=== PATIENT | female | born 1950 | race Caucasian/White ===

== ENCOUNTER 2020-01-28 12:54 | Emergency (ER) | payer MEDICARE, MEDICAID ==
[~2020-01-28] VITALS: Ht 172.7 cm; Wt 88.2 kg
[2020-01-28 13:01] VITALS: Ht 172.7 cm; Wt 88.2 kg
[2020-01-28 13:36] LABS: BASOPHILS 0.7 % (0-2); HEMATOCRIT 46.9 % (36.0-48.0); HEMOGLOBIN 15.6 g/dL (12-16); IMMATURE GRANULOCYTES 0.5 % (0-5); LYMPHOCYTES 27.2 % (15-50); MCH 30.1 pg (26.0-34.0); MCHC 33.3 g/dL (31.0-37.0); MCV 90.5 fL (80.0-100.0); MEAN PLATELET VOLUME 9.9 fL (7.4-10.4); MONOCYTES 5.7 % (2-11); NEUTROPHILS 63.9 % (40-80); PLATELET COUNT 290 10x3/uL (130-400); RBC 5.18 10x6/uL (4.00-5.40); RDW 12.9 % (11.5-14.5); WBC 8.2 10x3/uL (4.8-10.8)
[2020-01-28 13:40] LABS: ANION GAP 13.2 mmol/L (8-16); CALCIUM 9.2 mg/dL (8.5-10.1); CARBON DIOXIDE 25.5 mmol/L (21.0-32.0); CREATININE - SERUM 0.9 mg/dL (0.6-1.3); POTASSIUM - SERUM 3.7 mmol/L (3.5-5.1)
[2020-01-28 13:47] LABS: ALBUMIN 4.1 g/dL (3.4-5.0); BILIRUBIN - TOTAL 0.56 mg/dL (0.2-1.3); PROTEIN - SERUM 7.6 g/dL (6.4-8.2)
[2020-01-28 18:03] VITALS: BP 133/69
== END 2020-01-28 18:05 | disposition home or self-care (01) ==
LOC: D.ER 12:54
PROVIDERS: Family Medicine
DX: G45.9 Transient cerebral ischemic attack, unspecified (principal); R51 Headache; H53.8 Other visual disturbances; I48.91 Unspecified atrial fibrillation; K21.9 Gastro-esophageal reflux disease without esophagitis

== ENCOUNTER 2020-01-30 08:28 | Inpatient (IN) | payer MEDICARE ==
[~2020-01-30] VITALS: Ht 172.7 cm; Wt 88.2 kg
--- NOTE | ~2020-01-30 | HEMODYNAMI ---
PATIENT:KWAME SHELLEY MEDICAL RECORD: [id number] : 52 LOCATION[facility] [place] [facility] [id number] ADMISSION DATE: 01/30/20 Generatedon:02/01/202014:02 Patient name: KWAME SHELLEY Patient #: [id number] SSN: : 1950 Date of study: 02/01/2020 Page: Of Hemodynamic Procedure Report Patient Data Patient Demographics Procedure consent was obtained First Name: KWAME Gender: Female Last Name: KARSTEN : 1950 Patient #: [id number] Age: 69 year(s) Race: Unknown Additional ID: [id number] Contact details [address]: [address] [place] [address] State: [place] City: [place] Zip code: [address] Past Medical History Allergies Allergen Reaction Date Comments Reported Other allergy 02/01/2020 ACETAMINOPHEN, CODEINE, HYDROCODONE Admission Admission Data Admission Date: 01/30/2020 Admission Time: 16:35 Room #: D.2114 Height (in.): 67.72 BSA: 2.01 (m2) Height (cm.): 172 BMI: 29.75 (kg/m2) Weight (lbs.): 194.01 Weight (kg.): 88 Lab Results Lab Result Date: 02/01/2020 Lab Result Time: 0:00 Biochemistry Name Units Result Min Max BUN mg/dl 10 --(-*--)-- 7 18 Creatinine mg/dl 0.8 --(-*--)-- 0.6 1.3 eGFR ml/min 75 *-(----)-- 90 120 NONAFRICAN CBC Name Units Result Min Max Hematocrit % 41.1 -*(----)-- 42 54 Hemoglobin g/dl 13.2 -*(----)-- 13.5 17.5 Procedure Procedure Types Cath Procedure Diagnostic Procedure PPM/ICD PPM Dual Implant Sedation Charges Moderate Sedation up to 15 minutes Procedure Description Procedure Date Procedure Date: 02/01/2020 Procedure Start Time: 13:30 Procedure End Time: 13:58 Procedure Staff Name Function Kari Dubois RN Nurse Mega Hewitt MD Performing Physician Kam Garcia MD Assisting physician Faith Winchester RT Scrub Donny Song RT Monitor Emiliana Hcavez RT Retail Solar Advisor Procedure Data Cath Procedure Fluoroscopy Diagnostic fluoroscopy Total fluoroscopy Time: 0.8 time: 0.8 min min Diagnostic fluoroscopy Total fluoroscopy dose: dose: 18.56 mGy 18.56 mGy Contrast Material Contrast Material Type Amount (ml) Isovue 300 0 Estimated blood loss: 5 ml Procedure Complications No complications Procedure Medications Medication Administration Route Dosage 0.9% NaCl I.V. 100 ml/hr Oxygen etCO2 Nasal cannula 2 l/min Lidocaine 1% added to field 20 Ancef (1Gm/50ml NS) I.V.P.B 1 g Ancef Irrigation Topical 1 g (1gm/500ml NS) Versed I.V. 2 mg Fentanyl I.V. 50 mcg Versed I.V. 2 mg Fentanyl I.V. 50 mcg Versed I.V. 2 mg Hemodynamics Rest BSA: 2.01 (m2) HGB: 13.2 (g/dl) O2 Consumption: Estimated: 177.15 (ml/min) O2 Co nsumption indexed: Estimated:88.13 (ml/min/m) Heart Rate: 58 (bpm) Snapshots Pre Cath Intra NCS Post Cath Vital Signs Time Heart Resp SPO2 etCO2 NIBP (mmHg) Rhythm Pain Sedation Rate (ipm) (%) (mmHg) Status Level (bpm) 13:07:40 63 14 97 29 164/77(100) NSR 0 (11) 10(A) , No pain 13:12:07 59 11 97 36 160/70(100) SB 0 (11) 10(A) , No pain 13:16:31 64 14 96 36 145/63(79) NSR 0 (11) 10(A) , No pain 13:20:51 65 16 97 35.9 129/63(98) NSR 0 (11) 10(A) , No pain 13:25:07 71 16 97 39.7 123/60(94) NSR 0 (11) 10(A) , No pain 13:29:21 60 14 96 41.2 136/60(87) NSR 0 (11) 10(A) , No pain 13:33:39 71 10 97 35.2 125/65(85) NSR 0 (11) 10(A) , No pain 13:37:53 65 10 97 36.7 125/65(84) NSR 0 (11) 10(A) , No pain 13:42:05 63 10 96 18 131/67(86) Paced 0 (11) 9(A) , No pain 13:44:36 64 10 97 36.7 126/63(95) Paced 0 (11) 9(A) , No pain 13:48:48 67 9 98 24.7 134/68(91) Paced 0 (11) 9(A) , No pain 13:53:02 65 9 99 33.7 140/73(96) Paced 0 (11) 10(A) , No pain 13:57:20 61 11 99 28.5 142/70(98) Paced 0 (11) 10(A) , No pain Medications Time Medication Route Dose Verified Delivered Reason Notes Effecti veness by by 13:08:58 0.9% NaCl I.V. 100 Mega Kari used for ml/hr Kash Silvino procedure RN 13:09:19 Oxygen etCO2 2 Mega Kari [facility]al l[facility] 13:09:27 Lidocaine added 20ml Mega Ayoub for local 1% to vial [facility] anesthetic field MD BLANDON 13:09:50 Ancef I.V.P.B 1 g Congregational Kari used for (1Gm/50ml Frankie Dubois procedure NS) RN 13:10:00 Ancef Topical 1 g Congregational Congregational used for Irrigation Frankie Garcia MD procedure (1gm/500ml NS) 13:27:21 Versed I.V. 2 mg Mega Kari for KashKashif Dubois sedation RN 13:27:37 Fentanyl I.V. 50 Mega Kari for mcg St Kashif Dubois sedation RN 13:32:28 Versed I.V. 2 mg Mega Kari for St Kashif Dubois sedation MD AVENDANO 13:32:32 Fentanyl I.V. 50 Mega Kari for mcg KashKashif Dubois sedation RN 13:38:50 Versed I.V. 2 mg Mega Karimarylu Junior sedation MD AVENDANOsyrup mixer assistant Log Time Note 12:42:17 H&P Date Dictated: 01/30/2020 Within 30 days and on chart., H&P Addendum completed by physician on day of procedure. (MUST COMPLETE FOR ALL OUTPATIENTS). 12:42:51 Patient allergic to Other allergyACETAMINOPHEN, CODEINE, HYDROCODONE 12:46:07 Procedure Status PPM/ Gen Change/ Lead Revision/ Temp. 12:46:08 Time tracking: Regular hours (M-F 7:00 - 5:00) 12:46:13 Plan of Care:Hemodynamics will remain stable., Cardiac rhythm will remain stable., Comfort level will be maintained., Respiratory function will remain adequate., Patient/ family verbilizes understanding of procedure., Procedure tolerated without complication., Recovers from procedure without complications.. 12:46:15 Faith Winchester RT(R) sent for patient. Start room use. 13:06:20 Patient received from Re-APP II to CCL 3 Alert and oriented. Tansferred to table in Supine position. 13:06:21 Warm blankets applied, and wes hugger turned on for patient comfort. 13:06:23 Signed procedure consent form obtained from patient. 13:06:24 Correct patient and procedure confirmed by team. 13:06:25 ECG and BP/O2 sat monitors applied to patient. 13:06:25 Vital chart was started 13:06:27 Baseline sample Acquired. 13:06:30 Rhythm: sinus bradycardia 13:06:32 Full Disclosure recording started 13:06:32 Pre-procedure instructions explained to patient. 13:06:33 Pre-op teaching completed and patient verbalized understanding. 13:06:38 Family unavailable. 13:06:40 Patient NPO since Midnight. 13:06:42 Is patient on blood thinner?No 13:06:44 Patient diabetic? Yes. 13:06:46 If diabetic: On Metformin? No 13:06:49 Previous problem with sedation/anesthesia? No ? 13:08:58 0.9% NaCl 100 ml/hr I.V. was administered by Kari Dubois RN; used for procedure; Verbal order read back and verified. 13:09:19 Oxygen 2 l/min etCO2 Nasal cannula was administered by Kari Dubois RN; used for procedure; Verbal order read back and verified. 13:09:27 Lidocaine 1% 20ml vial added to field was administered by Mega Hewitt MD; for local anesthetic; Verbal order read back and verified. 13:09:50 Ancef (1Gm/50ml NS) 1 g I.V.P.B was administered by Kari Dubois RN; used for procedure; Verbal order read back and verified. 13:10:00 Ancef Irrigation (1gm/500ml NS) 1 g Topical was administered by Kam Garcia MD; used for procedure; Verbal order read back and verified. 13:10:41 Snore? Yes 13:10:42 Sleep apnea? No 13:10:43 Deviated septum? No 13:10:44 Opens mouth fully? Yes 13:10:45 Sticks out tongue? Yes 13:10:48 Airway obstruction? No ? 13:10:53 Dentures? Yes IN 13:11:00 IV patent on arrival in right hand with 0.9% NaCl at [facility]. 13:11:26 Lab Result : BUN 10 mg/dl 13:11:26 Lab Result : Creatinine 0.8 mg/dl 13:11:26 Lab Result : eGFR NONAFRICAN 75 ml/min 13:11:26 Lab Result : Hemoglobin 13.2 g/dl 13:11:26 Lab Result : Hematocrit 41.1 % 13:11:37 Lab results completed and on chart. 13:11:47 Left chest area was prepped with chlora-prep and draped in sterile fashion 13:11:48 Alarms reviewed by R. N. 13:11:48 Sharps counted by scrub and verified by R.N. 13:12:08 Medtronic senior account representative LAURYN BENTON present for procedure. 13:12:17 Pre sharps counted by scrub and verified by RN: Sutures: 7; Sponges: 5; Stick needles: 2; Skin needles: 2; Blade: 1; Cautery: 1 13:12:19 Grounding pad site Left thigh. 13:12:20 Grounding pad site free from injury. 13:12:49 Use device set FRANKIE PPM 13:13:12 2-0 Ticron Multipack ([id number]) opened to sterile field. 13:13:13 3-0 Vicryl Single Pack [id number] opened to sterile field. 13:13:13 5-0 Monocryl PS2 [id number] opened to sterile field. 13:13:14 Cautery Tip Analytical Consultant opened to sterile field. 13:13:15 Cautery Pushbutton Pencil opened to sterile field. 13:13:15 Mepilex Dressing (269453) opened to sterile field. 13:13:16 Immobilizer Sling Medium opened to sterile field. 13:13:21 Medtronic 4574-45 PPM Lead opened to sterile field. 13:13:24 Medtronic 4074-52 PPM Lead opened to sterile field. 13:13:[address] Generator [id number] opened to sterile field. 13:26:48 --------ALL STOP TIME OUT------ 13:26:49 Final Timeout: patient, procedure, and site verified with staff and physician. All members of the team are in agreement. 13:26:54 Left chest site verified by team. 13:26:57 Fire Safety Assessment: A--An alcohol-based skin anteseptic being used preoperatively., B--The operative or invasive procedure is being performed above the xiphoid process or in the oropharynx., C--Open oxygen or nitrous oxide is being used. 13:27:00 Physical assessment completed. ASA score P 2 - A patient with mild systemic disease as per Mega Hewitt MD. 13:27:05 Sedation plan: IV Moderate Sedation Medication:Versed, Fentanyl 13:27:21 Versed 2 mg I.V. was administered by Kari Dubois RN; for sedation; Verbal order read back and verified. 13:27:37 Fentanyl 50 mcg I.V. was administered by Kari Dubois RN; for sedation; Verbal order read back and verified. 13:29:44 Procedure started. 13:30:09 Lidocaine 1% was administered to left subclavicular area by Kam Garcia MD . 13:32:08 Patient Weight : 194.01 lbs 13:32:21 Patient Height : 67.72 inches 13:32:28 Versed 2 mg I.V. was administered by Kari Dubois RN; for sedation; Verbal order read back and verified. 13:32:31 Incision made to left subclavicular area. 13:32:32 Fentanyl 50 mcg I.V. was administered by Kari Dubois RN; for sedation; Verbal order read back and verified. 13:35:22 Generator pocket made/opened. 13:36:24 Left subclavian vein accessed with 7Fr Peel Away Sheath. 13:36:27 Left subclavian vein accessed with 7Fr Peel Away Sheath. 13:37:21 Ventricular lead inserted and advanced. 13:37:24 Atrial lead inserted and advanced. 13:38:50 Versed 2 mg I.V. was administered by Kari Dubois RN; for sedation; Verbal order read back and verified. 13:38:52 Ventricular lead positioned. 13:38:54 Ventricular lead tested. 13:39:27 Atrial lead positioned. 13:39:29 Atrial lead tested. 13:39:50 Peel-a-way sheath was split and removed. 13:39:51 Peel-a-way sheath was split and removed. 13:40:42 PPM Dual was inserted subcutaneously to left chest. 13:40:51 PPM Dual was attached to lead(s) and inserted into pocket. 13:41:00 Device pocket was irrigated with Ancef. 13:42:41 Generator was sutured in place with 2-0 ticron. 13:42:50 Atrial lead attachment was completed with 2-0 ticron. 13:42:55 Ventricular lead attachment was completed with 2-0 ticron. 13:43:49 Subcutaneous closure was completed with 3-0 vicryl. 13:43:57 Skin closure was completed with 5-0 monocryl. 13:46:27 Lt Chest incision was dressed with Mepilex dressing. 13:52:26 Parameters-- Generator: Mode: AAIR<=>DDDR. Lower Rate: 60bpm. Upper Rate: 130bpm. 13:53:27 Parameters--Atrial P/R Wave: 2.1mV. Current: ?mA; Threshold: 0.6V; Impedence: 532OHMS. 13:53:41 Parameters--Ventricular P/R Wave: 0.4mV. Current: ?mA; Threshold: 0.3V; Impedence: 1502OHMS. 13:53:50 Procedure ended.(Physican Out) 13:54:25 Fluoroscopy time 00.80 minutes. 13:54:34 Fluoroscopy dose: 18.56 mGy 13:54:34 Flurop Dose total: 18.56 13:54:46 Dose Area Product 214.45 mGy/cm. 13:54:49 Contrast amount:Isovue 300 0ml. 13:54:52 Maximum allowable dose exceeded? No. 13:54:53 Sharps counted by scrub and verified by R.N. 13:55:12 Insertion/operative site no bleeding no hematoma. 13:55:43 Post sharps counted by scrub and verified by RN: Sutures: 7; Sponges: 5; Stick needles: 2; Skin needles: 2; Blade: 1; Cautery: 1 13:55:58 Post left subclavian vein:stable, soft, clean and dry 13:56:09 Post procedure rhythm: sinus rhythm , paced 13:56:16 Estimated blood loss: 5 ml 13:56:16 Post procedure instruction explained to patient.Patient verbalizes understanding. 13:56:17 Patient needs reinforcement of post procedure teaching. 13:57:27 Post-procedure physical assessment completed. ASA score P 2 - A patient with mild systemic disease as per Mega Hewitt MD. 13:57:31 Procedure type changed to Cath procedure, Diagnostic procedure, PPM/ICD, PPM Dual Implant, Sedation Charges, Moderate Sedation up to 15 minutes 13:57:42 Procedure and supply charges have been captured, reviewed, submitted and are correct. 13:57:44 Procedure Complication : No complications 13:57:46 Vital chart was stopped 13:57:51 Operative report dictated upon procedure completion. 13:57:59 Full Disclosure recording stopped 13:59:41 See physician's report for complete and final results. 13:59:43 Report given to PCU. 13:59:45 Patient transfered to PCU with Stretcher. 14:00:05 End room use (Document Last) 14:00:56 End room use (Document Last) 14:01:26 Emiliana Chavez RT(R) was relieved by Kari Dubois RN as monitoring person 14:01:26 End room use (Document Last) 14:02:08 End room use (Document Last) Device Usage Item Name Manufacture Quantity Catalog [facility] Part Current [facility] Lot# / Serial# Number Charge Number Stock Stock Code 2-0 Ticron Ethicon 5 [id number] 076098 50249 440042 5 Multipack ([id number]) 3-0 Vicryl Ethicon 1 [id number] 770928 274375 669816 5 Single Pack [id number] 5-0 Monocryl Ethicon 1 [id number] 118175 175743 423359 5 PS2 Y495G Cautery Tip Microtek 1 [id number] 935901 802826 366602 5 Analytical Consultant [employer] Inc. Cautery Microtek 1 [id number] 303599 42158 286908 5 Pushbutton Medical Inc. Pencil Mepilex Cardinal 1 529257 668815 513400 027116 5 Dressing Health (382529) Immobilizer Cardinal 1 [id number] 756920 495956 472891 5 Sling Medium Health Medtronic Medtronic 1 4574-45 949174 096203 349020 5 [id number] EXP: 4574-45 PPM 09/17/2020 Lead Medtronic Medtronic 1 4074-52 682347 251032 739992 5 [id number] 4074-52 PPM EXP:09/09/2020 Lead Medtronic Medtronic 1 [id number] 048953 2977231 509256 [id number] EXP:05/30/2021 Generator W1DR01 Signature Audit [place] Stage Time Signature Unsigned Intra-Procedure 02/01/2020 Donny Song 2:00:56 PM RT(R) Intra-Procedure 02/01/2020 Kari Dubois 2:02:08 PM RN Intra-Procedure 02/01/2020 Mega Kay 2:02:50 PM Kashif [facility] [address] [place] [address]
--- NOTE | 2020-01-30 08:59 | NUR ---
PT TO CT S/P CHEST XRAY.
[2020-01-30 09:03] LABS: BASOPHILS 0.4 % (0-2); EOSINOPHILS 2.4 % (0-7); HEMOGLOBIN 14.3 g/dL (12-16); IMMATURE GRANULOCYTES 0.6 % (0-5); MCH 30.3 pg (26.0-34.0); MCHC 33.3 g/dL (31.0-37.0); MCV 91.1 fL (80.0-100.0); NEUTROPHILS 65.6 % (40-80); PLATELET COUNT 308 10x3/uL (130-400); RBC 4.72 10x6/uL (4.00-5.40)
[2020-01-30 09:09] LABS: WBC 14.2 10x3/uL (4.8-10.8)
[2020-01-30 09:20] LABS: APTT 25.1 SECONDS (22.8-39.4); INR 1.01 (0.85-1.17); PROTIME 13.2 SECONDS (11.6-15.0)
[2020-01-30 09:21] LABS: CALC OSMOLALITY 288 mosm/kg (275-300); CALCIUM 9.1 mg/dL (8.5-10.1); CARBON DIOXIDE 23.8 mmol/L (21.0-32.0); CHLORIDE - SERUM 107 mmol/L (98-107); CREATININE - SERUM 0.8 mg/dL (0.6-1.3); GLUCOSE 188 mg/dL (74-106); POTASSIUM - SERUM 3.6 mmol/L (3.5-5.1); SODIUM 143 mmol/L (136-145); UREA NITROGEN 9 mg/dL (7-18); eGFR NON AFRICAN AMERICAN 75 mL/min (90-120)
[2020-01-30 09:32] VITALS: BP 142/85
--- NOTE | 2020-01-30 09:33 | NUR ---
PULSE UP TO 80'S S/P ATROPINE BEING GIVEN.
[2020-01-30 09:46] LABS: ALBUMIN 3.6 g/dL (3.4-5.0); ALKALINE PHOSPHATASE 83 U/L (30-120); ALT (SGPT) 15 U/L (10-68); BILIRUBIN - TOTAL 0.61 mg/dL (0.2-1.3); CKMB 0.2 U/L (0.0-3.6); CREATINE KINASE 34 UL (21-215); MAGNESIUM - SERUM 1.9 mg/dL (1.8-2.4); PROTEIN - SERUM 6.8 g/dL (6.4-8.2); THYROID STIMULATING HORMONE 1.78 uIU/mL (0.36-3.74); TROPONIN-I < 0.017 ng/mL (0.000-0.060)
[2020-01-30] MEDS ORDERED: ASPIRIN325 MG PO (09:52)
[2020-01-30] MEDS ORDERED: PLAVIX75 MG PO (09:52)
[2020-01-30] MEDS ORDERED: PROTONIX40 MG PO (09:52)
[2020-01-30] MEDS ORDERED: OMEGA-3100 MG PO (09:52)
[2020-01-30 11:34] VITALS: BP 138/60; BMI 29.5
[2020-01-30 12:49] VITALS: Ht 172.7 cm; Wt 88.2 kg
--- NOTE | 2020-01-30 17:07 | NUR ---
AWAKE, ALERT AND ORIENTED X4. ORTHOSTATIC BP: LAY-114/51 HR-73, SIT-126/69 HR-61, STAND BP-127/68, HR-68. ASSIST OOB TO RESTROOM. UNABLE TO VOID FOR UA. REFUSE SCDs. SINUS RYTHM 68 ON TELEMETRY. DENIES ANY NEEDS AT THIS TIME. CONTINUE PLAN OF CARE AND SAFETY PRECAUTIONS.
[2020-01-30 17:17] LABS: T4 THYROXIN - FREE 1.3 ng/dL (0.76-1.46); THYROID STIMULATING HORMONE 0.74 uIU/mL (0.36-3.74)
--- NOTE | 2020-01-30 19:15 | NUR ---
RECEIVED REPORT, WILL ASSUME CARE OF PT, ASSISTED TO RESTROOM AND BACK TO BED, BED IS LOW, SRX2, BED IS LOW, SRX2, CALL LIGHT IN REACH, WILL CONTINUE PLAN OF CARE
[2020-01-30 20:00] VITALS: BP 118/41
--- NOTE | 2020-01-31 01:53 | NUR ---
I have reviewed this patient and I concur with the Shift Assessment completed by the Licensed Practical Nurse today this shift.
--- NOTE | 2020-01-31 05:23 | NUR ---
STANDING-98/40 HR-65 SITTING-117/56 HR-66 LYING-112/56 HR-67
[2020-01-31 05:48] LABS: BASOPHILS 0.1 % (0-2); EOSINOPHILS 0.7 % (0-7); HEMATOCRIT 41.1 % (36.0-48.0); HEMOGLOBIN 13.2 g/dL (12-16); IMMATURE GRANULOCYTES 0.3 % (0-5); LYMPHOCYTES 17.8 % (15-50); MCH 29.3 pg (26.0-34.0); MCHC 32.1 g/dL (31.0-37.0); MCV 91.1 fL (80.0-100.0); MEAN PLATELET VOLUME 10.3 fL (7.4-10.4); MONOCYTES 7.3 % (2-11); NEUTROPHILS 73.8 % (40-80); PLATELET COUNT 295 10x3/uL (130-400); RBC 4.51 10x6/uL (4.00-5.40); RDW 12.9 % (11.5-14.5); WBC 15.2 10x3/uL (4.8-10.8)
[2020-01-31 05:51] LABS: CALC OSMOLALITY 281 mosm/kg (275-300); CALCIUM 9.1 mg/dL (8.5-10.1); CARBON DIOXIDE 26.3 mmol/L (21.0-32.0); CHLORIDE - SERUM 106 mmol/L (98-107); CREATININE - SERUM 0.8 mg/dL (0.6-1.3); POTASSIUM - SERUM 3.9 mmol/L (3.5-5.1); SODIUM 142 mmol/L (136-145); UREA NITROGEN 10 mg/dL (7-18); eGFR NON AFRICAN AMERICAN 75 mL/min (90-120)
[2020-01-31 05:54] LABS: GLUCOSE 96 mg/dL (74-106)
[2020-01-31 07:48] VITALS: BP 129/50
--- NOTE | 2020-01-31 11:44 | NUR ---
ORTHOSTATIC BLOOD PRESSURE FOLLOWS: LAYIN/49 HR 76 SITTIN/58 HR 72 STANDIN/61 HR 84 PT DENIES ANY CURRENT DIZZINESS WITH THIS TRANSITION.
[2020-01-31 17:00] VITALS: BP 126/58
--- NOTE | 2020-01-31 17:10 | MORECARE ---
CASE MANAGEMENT DISCHARGE SUMMARY PATIENT: KWAME SHELLEY UNIT: [id number] ADM DATE: 01/30/20 AGE: 69 : 51 SEX: F ROOM/BED: D.2114 AUTHOR: KIMMIE MILLAN PHYSICIAN: REFERRING PHYSICIAN: NEETU EARLY MD DATE OF SERVICE: 01/31/20 Discharge Plan Patient Name: KWAME SHELLEY Facility: [facility]:[place] : 1950 Planned Disposition: Home Anticipated Discharge Date: Discharge Date: Expected LOS: Initial Reviewer: [email or web address] Initial Review Date: 01/31/2020 Generated: 01/31/20 6:10 pm Patient Name: KWAME SHELLEY Page 80869 at 1710 All edits/amendments must be made on the electronic document DICTATION DATE: 01/31/201709 CADWORX PIPING DESIGNER: GUERO 01/31/201709 RPT#: [id number] DC DATE: STATUS: ADM IN [facility] [address] [place] [address] END OF REPORT
--- NOTE | 2020-01-31 17:17 | MORECARE ---
CASE MANAGEMENT DISCHARGE SUMMARY PATIENT: KWAME SHELLEY UNIT: [id number] ADM DATE: 01/30/20 AGE: 69 : 51 SEX: F ROOM/BED: D.2114 AUTHOR: MONTY,DOC PHYSICIAN: REFERRING PHYSICIAN: NEETU EARLY MD DATE OF SERVICE: 01/31/20 Discharge Plan Patient Name: KWAME SHELLEY Facility: [facility]:[place] : 1950 Planned Disposition: Home Anticipated Discharge Date: Discharge Date: Expected LOS: Initial Reviewer: [email or web address] Initial Review Date: 01/31/2020 Generated: 01/31/20 6:17 pm Comments DCP- Discharge Planning Updated by [email or web address]: Carlo Chino on 01/31/20 4:[address] Patient Name: KWAME SHELLEY Admission Status: ER Accout number: [id number] Admission Date: 01-30-2020 : 1950 Admission Diagnosis: Attending: NEETU EARLY Current LOS: 1 Anticipated DC Date: Planned Disposition: Home Primary Insurance: MEDICARE A & B Discharge Planning Comments: CM MET WITH PT IN ROOM TO DISCUSS DISCHARGE PLANNING AND NEEDS. PT REPORTS LIVING AT HOME INDEPENDENTLY WITH HER ADULT DAUGHTER AND FRIEND. PT HAS CANE, WALKER AND SUPPLY CHAIN INTERN CHAIR WITH NO MEDICAL EQUIPMENT PROVIDER PREFERENCE. PT HAS NO OUTSIDE SERVICES ASSISTING IN THE HOME. CM DISCUSSED AVAILABILITY OF HOME HEALTH, REHAB SERVICES AND MEDICAL EQUIPMENT. PT DENIES DISCHARGE NEEDS, REPORTS HER DAUGHTER WILL PICK HER UP FOR DISCHARGE HOME PT PLANS TO DISCHARGE HOME WITH FAMILY AND HAS NO ANTICIPATED DISCHARGE NEEDS AT THIS TIME. FAMILY TO TRANSPORT HOME AT DISCHARGE. CM TO FOLLOW AND ASSIST IF NEEDED. Civil Engineering Intern: Carlo Chino DCPIA - Discharge Planning Initial Assessment Updated by [email or web address]: Carlo Chino on 01/31/20 5:13 pm * Is the patient Alert and Oriented? Yes * How many steps to enter\exit or inside your home? 4-O/ 12-I * PCP [address], [address] [facility] * [facility] * Preadmission Environment Home with Family * ADLs Independent * Equipment Cane Shower Chair Walker * Other Equipment NO MEDICAL EQUIPMENT PROVIDER PREFERENCE * List name and contact numbers for known caregivers / representatives who currently or will assist patient after discharge: MIGUEL ALINA, DTR, * Verbal permission to speak to the caregivers and representatives has been obtained from the patient. N/A * Community resources currently utilized None * Please name any agencies selected above. NONE * Additional services required to return to the preadmission environment? No * Can the patient safely return to the preadmission environment? Yes * Has this patient been hospitalized within the prior 30 days at any hospital? No Last DP export: 01/31/20 4:10 p Patient Name: KWAME SHELLEY Page 99992 at 1717 All edits/amendments must be made on the electronic document DICTATION DATE: 01/31/201716 ADOLESCENT MEDICINE SPECIALIST: GUERO 01/31/201716 RPT#: [id number] DC DATE: STATUS: ADM IN [facility] [address] [place] [address] END OF REPORT
--- NOTE | 2020-01-31 19:25 | NUR ---
RECEIVED REPORT, WILL ASSUME CARE OF PT, PT TALKING ON PHONE, DENIES ANY NEEDS AT THIS TIME, BED IS LOW, SRX2, CALL LIGHT IN REACH, WILL CONTINUE PLAN OF CARE
[2020-01-31 19:48] VITALS: BP 123/53
[2020-02-01] VITALS (7 sets, daily range): BP systolic 127–155; BP diastolic 52–73
--- NOTE | 2020-02-01 03:33 | NUR ---
I have reviewed this patient and I concur with the Shift Assessment completed by the Licensed Practical Nurse today this shift.
--- NOTE | 2020-02-01 05:11 | NUR ---
LYING-155/52 HR-66 SITTING-145/58 HR-65 STANDING 142/73 HR-71
[2020-02-01 06:29] LABS: BASOPHILS 0.3 % (0-2); EOSINOPHILS 3.8 % (0-7); HEMATOCRIT 40.6 % (36.0-48.0); HEMOGLOBIN 13.3 g/dL (12-16); MCH 29.8 pg (26.0-34.0); MCHC 32.8 g/dL (31.0-37.0); MCV 90.8 fL (80.0-100.0); MEAN PLATELET VOLUME 9.9 fL (7.4-10.4); NEUTROPHILS 59.9 % (40-80); PLATELET COUNT 276 10x3/uL (130-400); RBC 4.47 10x6/uL (4.00-5.40)
[2020-02-01 06:31] LABS: WBC 10.1 10x3/uL (4.8-10.8)
[2020-02-01 06:40] LABS: ALBUMIN 3.5 g/dL (3.4-5.0); ALKALINE PHOSPHATASE 77 U/L (30-120); ALT (SGPT) 12 U/L (10-68); BILIRUBIN - TOTAL 0.57 mg/dL (0.2-1.3); CALC OSMOLALITY 281 mosm/kg (275-300); CALCIUM 8.8 mg/dL (8.5-10.1); CARBON DIOXIDE 27.1 mmol/L (21.0-32.0); CHLORIDE - SERUM 107 mmol/L (98-107); CREATININE - SERUM 0.7 mg/dL (0.6-1.3); GLUCOSE 98 mg/dL (74-106); POTASSIUM - SERUM 3.7 mmol/L (3.5-5.1); PROTEIN - SERUM 6.1 g/dL (6.4-8.2); SODIUM 141 mmol/L (136-145); UREA NITROGEN 16 mg/dL (7-18); eGFR NON AFRICAN AMERICAN 88 mL/min (90-120)
--- NOTE | 2020-02-01 07:00 | NUR ---
RECEIVED REPORT. ASSUMED CARE OF PATIENT. CALL LIGHT WITHIN REACH. PATIENT RESTING IN BED WITH EYES OPEN. RESP EVEN AND UNLABORED. PATIENT UNDERSTANDS NPO STATUS AT THIS TIME FOR PACEMAKER PLACEMENT. NO DISTRESS. DENIES NEEDS.
--- NOTE | 2020-02-01 09:31 | NUR ---
DR.ST.JOHN LIN, REQUESTING CLARIFICATION OF WHICH MEDICATIONS PATIENT CAN HAVE BEFORE PPM THIS AFTERNOON.
--- NOTE | 2020-02-01 09:57 | NUR ---
RECEIVED ORDERS FROM GABY, CARDIOLOGY INDUSTRIAL LABORER, TO HOLD ALL MEDICATIONS THIS AM.
--- NOTE | 2020-02-01 12:31 | NUR ---
RESTING IN BED, AWAITING TO BE TAKEN TO METAL LEAF LAYER FOR PPM PLACEMENT. NEW HAT PLACED ON TOILET, PATIENT INSTRUCTED OF THE NEED FOR URINE SAMPLE. PATIENT HAS BEEN NPO SINCE [place] AND UNABLE TO GIVE SAMPLE AT THIS TIME. NO DISTRESS.
--- NOTE | 2020-02-01 12:45 | NUR ---
CONSENTS SIGNED AND PLACED ON CHART FOR PACEMAKER PLACEMENT.
--- NOTE | 2020-02-01 12:49 | NUR ---
PATIENT LEAVING UNIT VIA BED AT THIS TIME FOR PACEMAKER PLACEMENT.
--- NOTE | 2020-02-01 12:53 | NUR ---
MIGUEL FULLER, PATIENTS DAUGHTER, CALLED AND SPOKE TO HER TO LET HER KNOW THAT HER MOM WAS GOING FOR PACEMAKER PLACEMENT.NUMBER ON CHART IS NOT CORRECT, THAT IS THE PATIENTS CELL PHONE NUMBER.
--- NOTE | 2020-02-01 14:00 | NUR ---
RECEIVED REPORT FROM SHIPPING MANAGER. PATIENT BACK TO UNIT SOON. PATIENT HAD LEFT CHEST PPM PLACED AND RATE SET AT 60.
--- NOTE | 2020-02-01 14:22 | NUR ---
RECEIVED PATIENT BACK FROM TAPE EDITOR AT THIS TIME. SLING TO LEFT SHOULDER. DRESSING TO LEFT CHEST COVERING PACEMAKER SITE. PATIENT ALERT/ORIENTED. ORANGE JUICE PROVIDED. VS 130/63, PULSE 60. O2 SAT 99%. PATIENT DOES NOT WANT SUPPLEMENTAL OXYGEN. OXYGEN REMOVED. NO DISTRESS. CALL LIGHT WITHIN REACH.
--- NOTE | 2020-02-01 19:13 | NUR ---
RECEIVED BEDSIDE REPORT. PATIENT IS ALERT AND ORIENTED, RESTING COMFORTABLY IN BED. RESPIRATION ARE EVEN AND UNLABORED. NO S/S OF DISTRESS. NO C/O PAIN. CALL LIGHT WITHIN REACH. WILL CPOC.
--- NOTE | 2020-02-01 22:24 | NUR ---
PATIENT COMPLAINING OF PAIN LOCATED AROUND THE LEFT CHEST. THIS LOCATION IS WHERE SHE HAD A PACEMAKER PLACED TODAY. NOTIFIED VIVIAN GUERRERO APN. MORPHINE ORDERED.
--- NOTE | 2020-02-02 04:00 | NUR ---
OBTAINED UA AND TOOK TO LAB. AWAITING RESULT.
--- NOTE | 2020-02-02 04:10 | NUR ---
ORTHO VITAL LAYING: HR 60 B/P 129/69 SITTING: HR 63 B/P 132/70 STANDING: HR 70 B/P 154/55
[2020-02-02 04:15] VITALS: BP 129/69
[2020-02-02 06:07] LABS: BASOPHILS 0.4 % (0-2); HEMATOCRIT 40.8 % (36.0-48.0); HEMOGLOBIN 13.2 g/dL (12-16); IMMATURE GRANULOCYTES 0.2 % (0-5); LYMPHOCYTES 25.9 % (15-50); MCH 29.5 pg (26.0-34.0); MCHC 32.4 g/dL (31.0-37.0); MCV 91.3 fL (80.0-100.0); MEAN PLATELET VOLUME 10.1 fL (7.4-10.4); MONOCYTES 8.3 % (2-11); NEUTROPHILS 63.2 % (40-80); PLATELET COUNT 256 10x3/uL (130-400); RBC 4.47 10x6/uL (4.00-5.40); RDW 12.9 % (11.5-14.5); WBC 9.3 10x3/uL (4.8-10.8)
[2020-02-02 06:11] LABS: BILIRUBIN NEGATIVE (NEGATIVE); GLUCOSE NEGATIVE (NEGATIVE); KETONE NEGATIVE (NEGATIVE); NITRITE NEGATIVE (NEGATIVE); SPECIFIC GRAVITY 1.025 (1.005-1.020); UROBILINOGEN NORMAL (NORMAL)
[2020-02-02 06:37] LABS: ALBUMIN 3.2 g/dL (3.4-5.0); ALKALINE PHOSPHATASE 75 U/L (30-120); ALT (SGPT) 12 U/L (10-68); BILIRUBIN - TOTAL 0.66 mg/dL (0.2-1.3); CALC OSMOLALITY 279 mosm/kg (275-300); CALCIUM 8.5 mg/dL (8.5-10.1); CARBON DIOXIDE 25.4 mmol/L (21.0-32.0); CHLORIDE - SERUM 106 mmol/L (98-107); CREATININE - SERUM 0.7 mg/dL (0.6-1.3); GLUCOSE 99 mg/dL (74-106); POTASSIUM - SERUM 3.5 mmol/L (3.5-5.1); PROTEIN - SERUM 6.3 g/dL (6.4-8.2); SODIUM 140 mmol/L (136-145); UREA NITROGEN 14 mg/dL (7-18); eGFR NON AFRICAN AMERICAN 88 mL/min (90-120)
--- NOTE | 2020-02-02 08:30 | NUR ---
METRONICS AT BS CHECKING PACEMAKER.
--- NOTE | 2020-02-02 11:33 | NUR ---
AMBULATES HALLWAY WITH RN ASSIST. GAIT STEADY.
--- NOTE | 2020-02-02 12:53 | MORECARE ---
CASE MANAGEMENT DISCHARGE SUMMARY PATIENT: KWAME SHELLEY UNIT: [id number] ADM DATE: 01/30/20 AGE: 69 : 52 SEX: F ROOM/BED: D.2114 AUTHOR: MONTY,DOC PHYSICIAN: REFERRING PHYSICIAN: NEETU EARLY MD DATE OF SERVICE: 02/02/20 Discharge Plan Patient Name: KWAME SHELLEY Facility: [facility]:[place] : 1950 Planned Disposition: Home Anticipated Discharge Date: 02/02/20 Discharge Date: Expected LOS: 3 Initial Reviewer: [id number] Initial Review Date: 01/31/2020 Generated: 02/02/20 1:53 pm Comments DCP- Discharge Planning Updated by [email or web address]: Carlo Chino on 01/31/20 4:[address] Patient Name: KWAME SHELLEY Admission Status: ER Accout number: [id number] Admission Date: 01-30-2020 : 1950 Admission Diagnosis: Attending: NEETU EARLY Current LOS: 1 Anticipated DC Date: Planned Disposition: Home Primary Insurance: MEDICARE A & B Discharge Planning Comments: CM MET WITH PT IN ROOM TO DISCUSS DISCHARGE PLANNING AND NEEDS. PT REPORTS LIVING AT HOME INDEPENDENTLY WITH HER ADULT DAUGHTER AND FRIEND. PT HAS CANE, WALKER AND SQUASH CENTRE MANAGER CHAIR WITH NO MEDICAL EQUIPMENT PROVIDER PREFERENCE. PT HAS NO OUTSIDE SERVICES ASSISTING IN THE HOME. CM DISCUSSED AVAILABILITY OF HOME HEALTH, REHAB SERVICES AND MEDICAL EQUIPMENT. PT DENIES DISCHARGE NEEDS, REPORTS HER DAUGHTER WILL PICK HER UP FOR DISCHARGE HOME PT PLANS TO DISCHARGE HOME WITH FAMILY AND HAS NO ANTICIPATED DISCHARGE NEEDS AT THIS TIME. FAMILY TO TRANSPORT HOME AT DISCHARGE. CM TO FOLLOW AND ASSIST IF NEEDED. Cider Press Operator: Carlo Chino DCPIA - Discharge Planning Initial Assessment Updated by [email or web address]: Carlo Chino on 02/02/20 12:52 pm * Is the patient Alert and Oriented? Yes * How many steps to enter\exit or inside your home? 4-O/ 12-I * PCP DR. ANTHONY * Pharmacy [facility] * Preadmission Environment Home with Family * ADLs Independent * Equipment Cane Shower Chair Walker * Other Equipment NO MEDICAL EQUIPMENT PROVIDER PREFERENCE * List name and contact numbers for known caregivers / representatives who currently or will assist patient after discharge: MIGUEL ALINA, DTR, * Verbal permission to speak to the caregivers and representatives has been obtained from the patient. N/A * Community resources currently utilized None * Please name any agencies selected above. NONE * Additional services required to return to the preadmission environment? No * Can the patient safely return to the preadmission environment? Yes * Has this patient been hospitalized within the prior 30 days at any hospital? No Coverage Notice Reviewer: [id number] Yesica Chino Notice Issued Date-Time: 02/02/2020 12:30 Notice Type: IM Discharge Notice Notice Delivered To: Patient Relationship to Patient: Spool Sander Name: Delivery Method: HAND - Hand Delivered Dalia Days: Prior Verbal Notification: Recipient Understood Notice: Yes Recipient Signature: Yes Med Rec Note Co-signed by Attending: Coverage Notice Comment: Last DP export: 01/31/20 4:17 p Patient Name: KWAME SHELLEY Page [id number] at 1253 All edits/amendments must be made on the electronic document DICTATION DATE: 02/02/20 1253 CHIEF ENGINEERING DIVISION: GUERO 02/02/20 1253 RPT#: [id number] DC DATE: STATUS: ADM IN [facility] [address] [place] [address] END OF REPORT
--- NOTE | 2020-02-02 13:01 | MORECARE ---
CASE MANAGEMENT DISCHARGE SUMMARY PATIENT: KWAME SHELLEY UNIT: [id number] ADM DATE: 01/30/20 AGE: 69 : 51 SEX: F ROOM/BED: D.2114 AUTHOR: MONTY,DOC PHYSICIAN: REFERRING PHYSICIAN: NEETU EARLY MD DATE OF SERVICE: 02/02/20 Discharge Plan Patient Name: KWAME SHELLEY Facility: [facility]:[place] : 1950 Planned Disposition: Home Anticipated Discharge Date: 02/02/20 Discharge Date: Expected LOS: 3 Initial Reviewer: [email or web address] Initial Review Date: 01/31/2020 Generated: 02/02/20 2:00 pm Comments DCP- Discharge Planning Updated by [id number]: Carlo Chino on 02/02/20 11:[address] Patient Name: KWAME SHELLEY Encounter No: [id number] : 1950 Primary Insurance: MEDICARE A & B Anticipated DC Date: 02-02-2020 Planned Disposition: Home DCP follow-up note: CM MET WITH PT IN ROOM TO DISCUSS DISCHARGE NEEDS AND PLANNING. CM DISCUSSED AVAILABILITY OF HOME HEALTH, REHAB SERVICES AND MEDICAL EQUIPMENT. PT DENIES DISCHARGE NEEDS. FAMILY TO TRANSPORT HOME AT DISCHARGE. PT REPORTS THAT SHE HAS BEEN UP AND OUT OF BED IN ROOM WITH NO ISSUES. PT WILL HAVE FAMILY ASSISTANCE AT HOME. IMPORTANT MESSAGE FROM MEDICARE PROVIDED AND EXPLAINED. CM SPOKE TO BEDSIDE NURSE WHO CONFIRMED THAT PT HAS BEEN UP IN ROOM WITHOUT ASSISTANCE AND WITHOUT ISSUES. DELILAH Zhang DCP- Discharge Planning Updated by [id number]: Carlo Chino on 01/31/20 4:[address] Patient Name: KWAME SHELLEY Admission Status: ER Accout number: [id number] Admission Date: 01-30-2020 : 1950 Admission Diagnosis: Attending: NEETU EARLY Current LOS: 1 Anticipated DC Date: Planned Disposition: Home Primary Insurance: MEDICARE A & B Discharge Planning Comments: CM MET WITH PT IN ROOM TO DISCUSS DISCHARGE PLANNING AND NEEDS. PT REPORTS LIVING AT HOME INDEPENDENTLY WITH HER ADULT DAUGHTER AND FRIEND. PT HAS CANE, WALKER AND MECHANICAL SPECIALIST CHAIR WITH NO MEDICAL EQUIPMENT PROVIDER PREFERENCE. PT HAS NO OUTSIDE SERVICES ASSISTING IN THE HOME. CM DISCUSSED AVAILABILITY OF HOME HEALTH, REHAB SERVICES AND MEDICAL EQUIPMENT. PT DENIES DISCHARGE NEEDS, REPORTS HER DAUGHTER WILL PICK HER UP FOR DISCHARGE HOME PT PLANS TO DISCHARGE HOME WITH FAMILY AND HAS NO ANTICIPATED DISCHARGE NEEDS AT THIS TIME. FAMILY TO TRANSPORT HOME AT DISCHARGE. CM TO FOLLOW AND ASSIST IF NEEDED. Sole Tier: Carlo Chino DCPIA - Discharge Planning Initial Assessment Updated by [id number]: Carlo Chino on 02/02/20 12:52 pm * Is the patient Alert and Oriented? Yes * How many steps to enter\exit or inside your home? 4--I * PCP DR. ANTHONY * Pharmacy [facility] * Preadmission Environment Home with Family * ADLs Independent * Equipment Cane Shower Chair Walker * Other Equipment NO MEDICAL EQUIPMENT PROVIDER PREFERENCE * List name and contact numbers for known caregivers / representatives who currently or will assist patient after discharge: MIGUEL FULLER DTSasha, * Verbal permission to speak to the caregivers and representatives has been obtained from the patient. N/A * Community resources currently utilized None * Please name any agencies selected above. NONE * Additional services required to return to the preadmission environment? No * Can the patient safely return to the preadmission environment? Yes * Has this patient been hospitalized within the prior 30 days at any hospital? No Coverage Notice Reviewer: [id number] - Carlo Chino Notice Issued Date-Time: 02/02/2020 12:30 Notice Type: IM Discharge Notice Notice Delivered To: Patient Relationship to Patient: Kitchen Aide Name: Delivery Method: HAND - Hand Delivered Dalia Days: Prior Verbal Notification: Recipient Understood Notice: Yes Recipient Signature: Yes Med Rec Note Co-signed by Attending: Coverage Notice Comment: Last DP export: 02/02/20 11:53 am Patient Name: KWAME SHELLEY Page [id number] at 1301 All edits/amendments must be made on the electronic document DICTATION DATE: 02/02/20 1300 SET UP PERSON: GUERO 02/02/20 1300 RPT#: [id number] DC DATE: STATUS: ADM IN [facility] [address] [place] [address] END OF REPORT
[2020-02-02] MEDS ORDERED: PLAVIX75 MG PO (13:33)
--- NOTE | 2020-02-02 14:44 | NUR ---
IV AND TELEMETRY DCD. DC PLANS GIVEN. UNDERSTANDING VOICED. ESCORTED TO CAR BY W/C.
--- NOTE | 2020-02-03 09:07 | OP ---
PATIENT NAME: JORGE ALBERTO SHELLEY MEDICAL RECORD: [id number] :[birth year] LOCATION:D.M2 D.2114 ADMISSION DATE:01/30/20 SURGEON: ISIDRA GAITAN MD DATE OF OPERATION: 02/01/2020 PROCEDURE: Lead portion of permanent pacemaker placement. INDICATION: Sick sinus syndrome with symptomatic bradycardia. SURGEON: Kam Garcia MD DESCRIPTION OF PROCEDURE: After the left subclavian was cannulated via modified Seldinger technique via Dr. Garcia. First under fluoroscopic guidance, we placed the RV lead in the RV apex without difficulty. After adequate thresholds and R waves were obtained, then under fluoroscopic guidance, again placed the right atrial lead in the right atrial appendage without difficulty. After adequate P waves and thresholds obtained, the leads were attached to appropriate poles of the generator. Pocket was closed via Dr. Garcia. IMPRESSION: Successful lead portion of permanent pacemaker placement on Jorge Alberto Shelley. COMPLICATIONS: None. ESTIMATED BLOOD LOSS: Minimal. DISPOSITION: To the floor, stable. TRANSINT:[id number] Voice Confirmation ID: [id number] DOCUMENT ID: [id number] ISIDRA GAITAN MD at 0907 CC: [id number] DICTATION DATE: 02/01/20 1346 TALENT DEVELOPMENT MANAGER: 02/01/20 2201 DIS IN 02/02/20 [address] [place] [address]
--- NOTE | 2020-02-18 13:30 | OP ---
PATIENT NAME: KWAME SHELLEY MEDICAL RECORD: [id number] :52 LOCATION:D.M2 D.2114 ADMISSION DATE:01/30/20 SURGEON: ALFREDITO DAVID MD DATE OF OPERATION: 02/01/2020 PREOPERATIVE DIAGNOSES: 1. Sick sinus syndrome with symptomatic bradycardia. 2. Atrial fibrillation. POSTOPERATIVE DIAGNOSES: 1. Sick sinus syndrome with symptomatic bradycardia. 2. Atrial fibrillation. PROCEDURE: 1. Left subclavian vein dual lead pacemaker placement. 2. Fluoroscopic interpretation. SURGEON: Alfredito Dvaid MD CO-SURGEON: Mega Valero MD REPORT OF PROCEDURE: The patient's left chest was prepped and draped in sterile fashion. A 20 mL of 1% lidocaine with epinephrine was infused into the surrounding tissues. A transverse incision was made in the left superior lateral chest and a subcutaneous pouch was made over the pectoral fascia. Needle was used to cannulate the left subclavian vein times 2 and guidewires were advanced with ease. Fluoro was used to note that the wires were in good position in the venous system. Dilator trocar devices were placed over the wires and the wires and dilators were removed. The leads were advanced through the trocars until they rested in the superior vena cava. At this point, Dr. Valero positioned the leads appropriately in atrium and ventricle. With these were noted to be functioning appropriately, then they were sutured into place with 2-0 TiCron. The leads were affixed to the pacemaker, which was placed into the subcutaneous pouch. We sutured the pacemaker to the pectoral fascia using a single interrupted 2-0 TiCron. The subcutaneous tissues were irrigated out with antibiotic solution and then reapproximated with interrupted 3-0 Vicryl. The skin was closed with running subcutaneous 5-0 Monocryl and dressed appropriately. COMPLICATIONS: None. CONDITION: Stable. ANESTHESIA: Local MAC. BLOOD LOSS: Minimal. TRANSINT:[id number] Voice Confirmation ID: [id number] DOCUMENT ID: [id number] OPERATIVE REPORT [id number] KWAME SHELLEY CHRISTIAN MD at 1330 CC: [id number] DICTATION DATE: 02/01/20 1356 REHAB LIAISON: 02/01/20 2227 DIS IN 02/02/20 [facility] [address] [place] [address]
== END 2020-02-02 14:44 | disposition home or self-care (01) | DRG 243 ==
LOC: OBSVTIME → D.ER 08:28 → D.OPS 08:28 → D.M2 10:22 → D.ER 10:22 → EDSTATUS 14:15 → D.M2 15:44 → OBSVTIME 16:34 → D.M2 16:35
PROVIDERS: Family Medicine; Internal Medicine Interventional Cardiology; ADMIT Internal Medicine Nephrology; ATTEND Internal Medicine Nephrology
PROC: 02HK3JZ Insertion of Pacemaker Lead into Right Ventricle, Percutaneous Approach (ICD-10-PCS; 2020-02-01)
PROC: 02H63JZ Insertion of Pacemaker Lead into Right Atrium, Percutaneous Approach (ICD-10-PCS; 2020-02-01)
PROC: 0JH606Z Insertion of Pacemaker, Dual Chamber into Chest Subcutaneous Tissue and Fascia, Open Approach (ICD-10-PCS; principal; 2020-02-01 12:45)
DX: I49.5 Sick sinus syndrome (principal); F17.213 Nicotine dependence, cigarettes, with withdrawal; I48.20 Chronic atrial fibrillation, unspecified; R55 Syncope and collapse; K21.9 Gastro-esophageal reflux disease without esophagitis; Z86.73 Personal history of transient ischemic attack (TIA), and cerebral infarction without residual deficits